=== PATIENT | male | born 1955 | race Two or more races ===

== ENCOUNTER 2024-12-26 14:31 | Inpatient (IN) | payer OTHER, MEDICARE ==
[~2024-12-26] VITALS: Ht 180.3 cm; Wt 118.0 kg
[2024-12-26 14:38] VITALS: PULSE 198; RESP 28; O2SAT 94
[2024-12-26] MEDS: MIDAZOLAM HCL 5 MG/ML-1ML VIAL IV ONE ×2 (14:44→15:51)
[2024-12-26 15:17] LABS: Hematocrit 43.6 % (41.0-53.0); Hemoglobin 14.9 g/dL (13.5-17.5); Mean Corpuscular Hemoglobin 30.9 pg (28.0-32.0); Mean Corpuscular Volume 90.5 fL (80.0-100.0); Nucleated Red Blood Cells % 0.1 %
[2024-12-26] MEDS: MIDAZOLAM HCL 5 MG/ML-1ML VIAL ONE ×2 (15:24→15:53)
[2024-12-26 15:30] LABS: Alanine Aminotransferase 37 U/L (7-40); Albumin 4.1 g/dL (3.2-4.8); Alkaline Phosphatase 95 U/L (46-116); Anion Gap 18 (5-15); BUN/Creatinine Ratio 12.4 (10.0-20.0); Blood Urea Nitrogen 18 mg/dL (9-23); Calcium 9.6 mg/dL (8.7-10.4); Chloride 102 mmol/L (98-107); Potassium 3.7 mmol/L (3.5-5.1); Sodium 138 mmol/L (136-145); Total Protein 7.2 g/dL (5.7-8.2)
[2024-12-26 15:31] LABS: Bilirubin, Total 1.7 mg/dL (0.2-1.0); Carbon Dioxide 18 mmol/L (20-31); Glucose 207 mg/dL (74-106)
--- NOTE | 2024-12-26 15:44 | DVH ---
CHEST RADIOGRAPH Indication: afib with rvr Technique: Single frontal view of the chest was obtained COMPARISON: None FINDINGS: Lines and Tubes: None Lungs: Congestion Pleura: No effusion.No pneumothorax. Cardiomediastinal contours: Cardiomegaly Bones: Unremarkable IMPRESSION: Cardiomegaly with mild pulmonary vascular congestion.
[2024-12-26] MEDS: HALOPERIDOL LACTATE 5 MG/ML INJ VIAL IM ONE (15:45)
[2024-12-26] MEDS: HALOPERIDOL LACTATE 5 MG/ML INJ VIAL ONE (15:53)
[2024-12-26 15:56] LABS: Lactic Acid w/Reflex 4.7 mmol/L (0.4-2.0)
[2024-12-26] MEDS: AMIODARONE BOLUS KIT 100 ML IV ONE (16:04)
--- NOTE | 2024-12-26 17:14 | ECG ---
[facility] Test Date: 2024-12-26 Test Time: 14:33:30 Pat Name: ANGELINE LORENZO Department: ED Room: [address] [place] [address] Gender: M Personal Service Representative: gp : 1955 Requested By: DANILO LEDEZMA Order Number: [id number] Reading MD: Nico Lorenzo Measurements Intervals [place] Rate: 180 P: 0 VA: 0 QRS: 174 QRSD: 79 T: 69 QT: 254 QTc: 440 Interpretive Statements Atrial fibrillation with rapid V-rate Right axis deviation Probable anteroseptal infarct, old Baseline wander in lead(s) I,II,aVR,V5 Electronically Signed On 12-27-2024 17:58:37 PST by Nico Lorenzo Please click the below link to view image of tracing.
[2024-12-26 19:00] VITALS: PULSE 95; RESP 24; O2SAT 100
[2024-12-27 07:28] VITALS: PULSE 127; RESP 16; O2SAT 99
--- NOTE | 2024-12-27 11:48 | ED.PDOC ---
History of Present Illness HPI Comments This is a 69-year-old male who comes in with chief complaint of possible seizure activity. It is unknown how long the seizure lasted. The patient was found outside of a hotel yesterday. The patient denies any nausea, vomiting or diarrhea. The patient was altered at that time and was somewhat combative. The patient today denies any drug use and states that he took some pain medication for his back and knees. The patient has been here in the emergency department's and is now more awake and answering questions. The patient denies any history of seizures. Chief Complaint: Seizure Time Seen by MD: 11:48 Reviewed Notes: Nurses Notes, Printed Circuit Layout Taper Notes, Medications, Allergies (No allergies to medications) Allergies: Coded Allergies: NO KNOWN ALLERGIES (Unverified , 12/26/24) Information Source: Patient, Emergency Med Personnel Mode of Arrival: EMS Severity: Moderate Timing: Hours Duration: Since onset Prehospital treatment: Family And Divorce Legal Assistant, IVF Associated signs and symptoms No chest pain or shortness for breath Past Medical History PAST MEDICAL HISTORY: DM, High Lipids Surgical History: Appendectomy, Cholecystectomy Family History Family History: No family hx of Cancer, No family hx of DM, No family hx of Heart ele Social History Smoker: Cigarettes Alcohol: Occasionally Drugs: Denies Drug Use Lives In: Home Constitutional: denies: chills, diaphoresis, fatigue, fever, malaise, sweats, weakness, others EENTM: denies: blurred vision, double vision, ear bleeding, ear discharge, ear drainage, ear pain, ear ringing, eye pain, eye redness, hearing loss, mouth pain, mouth swelling, nasal discharge, nose bleeding, nose congestion, nose pain, photophobia, tearing, throat pain, throat swelling, voice changes, others Respiratory: denies: cough, hemoptysis, orthopnea, SOB at rest, shortness of breath, SOB with excertion, stridor, wheezing, others Cardiovascular: denies: chest pain, dizzy spells, diaphoresis, Dyspnea on exertion, edema, irregular heart beat, left arm pain, lightheadedness, palpitations, PND, syncope, others Gastrointestinal: denies: abdomen distended, abdominal pain, blood streaked bowels, constipated, diarrhea, dysphagia, difficulty swallowing, hematemesis, melena, nausea, poor appetite, poor fluid intake, rectal bleeding, rectal pain, vomiting, others Genitourinary: denies: burning, dysuria, flank pain, frequency, hematuria, incontinence, penile discharge, penile sore, pain, testicle pain, testicle swelling, urgency, others Neurological: reports: seizure; denies: dizziness, fainting, headache, left sided numbness, left sided weakness, numbness, paresthesia, pre-existing deficit, right sided numbness, right sided weakness, speech problems, tingling, tremors, weakness, others Integumetry: denies: bruises, change in color, change in hair/nails, dryness, laceration, lesions, lumps, rash, wounds, others Allergic/Immunocompromised: denies: Difficulty Healing, Frequent Infections, Hives, Itching, others Hematologic/Lymphatic: denies: anemia, blood clots, easy bleeding, easy bruising, swollen glands, others Endocrine: denies: excessive hunger, excessive sweating, excessive thirst, excessive urination, flushing, intolerance to cold, intolerance to heat, unexplained weight gain, unexplained weight loss, others Psychiatric: denies: anxiety, bipolar disorder, depression, hopeless, panic disorder, schizophrenia, sleepless, suicidal, others Physical Exam General Appearance: Mild Distress HEENT: Normal ENT Inspection, Pharynx Normal, TMs Normal Neck: Full Range of Motion, Non-Tender, Normal, Normal Inspection Respiratory: Chest Non-Tender, Lungs Clear, No Accessory Muscle Use, No Respiratory Distress, Normal Breath Sounds Cardiovascular: No Edema, No JVD, No Murmur, No Gallop, Normal Peripheral Pulses, Regular Rate/Rhythm Breast Exam: Deferred Gastrointestinal: No Organomegaly, Non Tender, No Pulsatile Mass, Normal Bowel Sounds, Soft Genitalia: Deferred Pelvic: Deferred Rectal: Deferred Extremities: No calf tenderness, Normal capillary refill, Normal inspection, Normal range of motion, Non-tender, No pedal edema Musculoskeletal : Apperance: Normal Neurologic: Alert, interpretive program coordinator II-XII nml as Tested, No Motor Deficits, Normal Affect, Normal Mood, No Sensory Deficits Cerebellar Function: Normal Reflexes: Normal Skin: Dry, Normal Color, Warm Lymphatic: No Adenopathy Was a procedure done? Was a procedure done?: No Differential Dx Considerations may include: Seizure activity, generalized weakness, electrolyte imbalance, dehydration X-Ray, Labs, Meds, VS Vital Signs Date Time Temp Pulse Resp B/P (MAP) Pulse Ox O2 Delivery O2 Flow Rate FiO2 12/27/24 10:00 111 20 118/59 (78) 99 12/27/24 09:03 117 19 111/72 (85) 100 12/27/24 08:00 124 12/27/24 07:38 97.5 108 16 119/62 (81) 97 97.5 12/27/24 07:28 127 16 99 Room Air* 0 21 12/27/24 06:30 125 24 124/73 (90) 100 12/27/24 06:00 117 23 122/62 (82) 100 12/27/24 05:30 117 24 134/83 (100) 100 12/27/24 05:00 121 21 124/60 (81) 100 12/27/24 04:30 116 19 115/64 (81) 100 12/27/24 04:00 124 12/27/24 04:00 116 22 117/68 (84) 100 12/27/24 03:30 109 20 108/67 (81) 100 12/27/24 03:00 64 20 110/68 (82) 100 12/27/24 02:30 115 20 110/73 (85) 100 12/27/24 02:00 114 39 94/56 (69) 100 12/27/24 01:30 101 26 93/63 (73) 100 12/27/24 01:00 88 26 94/50 (65) 100 12/27/24 00:30 67 20 97/59 (72) 100 12/27/24 00:00 112 12/27/24 00:00 115 20 101/58 (72) 100 12/26/24 23:30 85 22 97/61 (73) 100 12/26/24 23:00 92 40 113/52 (72) 100 12/26/24 22:30 104 21 91/56 (68) 100 12/26/24 22:00 104 21 91/55 (67) 100 12/26/24 21:30 121 38 91/57 (68) 100 12/26/24 21:00 77 33 91/64 (73) 100 12/26/24 20:30 80 24 95/59 (71) 100 12/26/24 20:00 125 12/26/24 20:00 71 25 100/50 (67) 100 12/26/24 19:50 122 27 95/65 (75) 100 12/26/24 19:15 97.9 95 24 86/62 (70) 100 97.9 12/26/24 19:00 95 24 100 Room Air* 0 21 12/26/24 17:03 136 24 91/50 (64) 99 12/26/24 16:14 140 12/26/24 15:16 98.4 158 28 102/57 (72) 98.4 12/26/24 14:38 198 28 94 Room Air* 0 21 12/26/24 14:33 180 12/26/24 14:31 193 22 136/104 94 Lab Test 12/26/24 18:21 12/26/24 16:47 12/26/24 16:00 12/26/24 14:56 Range/Units Troponin I High Sensitivity 180 *H 233 *H 193 *H </=54 ng/L Lactic Acid Level 1.8 4.7 *H 0.4-2.0 mmol/L White Blood Count 14.5 H 4.4-10.8 10^3/uL Red Blood Count 4.82 4.5-5.90 10^6/uL Hemoglobin 14.9 13.5-17.5 g/dL Hematocrit 43.6 41.0-53.0 % Mean Corpuscular Volume 90.5 80.0-100.0 fL Mean Corpuscular Hemoglobin 30.9 28.0-32.0 pg Mean Corpuscular Hemoglobin Concent 34.2 32.0-36.0 g/dL Red Cell Distribution Width 13.9 11.8-14.3 % Platelet Count 221 140-450 10^3/uL Mean Platelet Volume 8.9 6.9-10.8 fL Neutrophils (%) (Auto) 86.3 H 37.0-80.0 % Lymphocytes (%) (Auto) 5.5 L 10.0-50.0 % Monocytes (%) (Auto) 6.7 0.0-12.0 % Eosinophils (%) (Auto) 0.1 0.0-7.0 % Basophils (%) (Auto) 1.4 0.0-2.0 % Neutrophils # (Auto) 12.5 H 1.6-8.6 10 ^3/uL Lymphocytes # (Auto) 0.8 0.4-5.4 10 ^3/uL Monocytes # (Auto) 1.0 0-1.3 10 ^3/uL Eosinophils # (Auto) 0 0-0.8 10 ^3/uL Basophils # (Auto) 0.2 0-0.2 10 ^3/uL Nucleated Red Blood Cells 0.1 % Sodium Level 138 136-145 mmol/L Potassium Level 3.7 3.5-5.1 mmol/L Chloride Level 102 98-107 mmol/L Carbon Dioxide Level 18 L 20-31 mmol/L Anion Gap 18 H 5-15 Blood Urea Nitrogen 18 9-23 mg/dL Creatinine 1.45 H 0.700-1.30 mg/dL Glomerular Filtration Rate Calc 52 >90 mL/min BUN/Creatinine Ratio 12.4 10.0-20.0 Serum Glucose 207 H 74-106 mg/dL Calcium Level 9.6 8.7-10.4 mg/dL Total Bilirubin 1.7 H 0.2-1.0 mg/dL Aspartate Amino Transferase (AST) 60 H 13-40 U/L Alanine Aminotransferase (ALT) 37 7-40 U/L Alkaline Phosphatase 95 46-116 U/L B-Type Natriuretic Peptide 933.70 0-100 pg/mL Total Protein 7.2 5.7-8.2 g/dL Albumin 4.1 3.2-4.8 g/dL Current Medications Medications (Trade) Dose Ordered Sig/Nadine Route Start Time Stop Time Status Last Admin Midazolam HCl (Versed Injection) 5 mg ONCE ONCE IV 12/26/24 15:15 12/26/24 15:16 DC 12/26/24 14:44 Amiodarone HCl 100 ml @ 600 mls/hr ONCE ONCE IV 12/26/24 15:30 12/26/24 15:39 DC 12/26/24 16:04 Amiodarone HCl 250 ml @ 33.33 mls/ hr Q7H31M ONCE IV 12/26/24 15:45 12/26/24 23:15 DC 12/26/24 16:13 Amiodarone HCl 250 ml @ 16.66 mls/ hr Q15H1M IV 12/26/24 21:45 12/27/24 02:00 Midazolam HCl (Versed Injection) 10 mg ONCE ONCE IV 12/26/24 15:45 11/17/25 15:46 DC 12/26/24 15:51 Haloperidol Lactate (Haldol) 10 mg ONCE ONCE IM 12/26/24 15:45 12/26/24 15:46 DC 12/26/24 15:45 IV Hep-Lock was established. The patient was given Versed 5 mg IV push initially Patient had atrial fibrillation with rapid response initially upon arrival and the patient was started on an amiodarone drip after given a bolus. The patient required an additional dose of Versed as well as Haldol. The patient is now more cooperative. The BNP is 933 The patient's lactic acid level was 4.7 but is now gone down to 1.8. The troponin level has remained elevated above 200. At this time, the patient is being admitted to the hospitalist. Images Reviewed?: Images reviewed and evaluated by me Time of 1ST Reevaluation: 11:44 Reevaluation 1ST: Unchanged Patient Education/Counseling: Diagnosis, Treatment, Prognosis Family Education/Counseling: No Family Present SEPSIS Sepsis Screen Date sepsis recognized/suspect: Dec 26, 2024 Time Sepsis recognized/suspect: 1899 Recent Procedure: No On Antibiotic Therapy: No Respiratory Rate >20: Yes Heart Rate >90: Yes Temp<36 C (96.8 F) or >38.3 C: No SBP <90 or MAP <65 mmHG: Yes New Acute Mental Status Change: No Is the patient on CPAP, BIPAP,: No Physician Orders Chest Portable (12/26/24 14:41) Blood Culture (12/26/24 14:41) Urinalysis (12/26/24 14:41) Drug Screen (12/26/24 14:41) Electrocardigram (12/26/24 15:41) Electrocardigram (12/26/24 17:41) Amiodarone 450mg/250ml Ae (Cordarone) (12/26/24 21:45) Quintero Catheters (12/26/24 ) Urine Bacterial Culture (12/26/24 16:46) Vital Signs Date Time Temp Pulse Resp B/P (MAP) Pulse Ox O2 Delivery O2 Flow Rate FiO2 12/27/24 10:00 111 20 118/59 (78) 99 12/27/24 09:03 117 19 111/72 (85) 100 12/27/24 08:00 124 12/27/24 07:38 97.5 108 16 119/62 (81) 97 97.5 12/27/24 07:28 127 16 99 Room Air* 0 21 12/27/24 06:30 125 24 124/73 (90) 100 12/27/24 06:00 117 23 122/62 (82) 100 12/27/24 05:30 117 24 134/83 (100) 100 12/27/24 05:00 121 21 124/60 (81) 100 12/27/24 04:30 116 19 115/64 (81) 100 12/27/24 04:00 124 12/27/24 04:00 116 22 117/68 (84) 100 12/27/24 03:30 109 20 108/67 (81) 100 12/27/24 03:00 64 20 110/68 (82) 100 12/27/24 02:30 115 20 110/73 (85) 100 12/27/24 02:00 114 39 94/56 (69) 100 12/27/24 01:30 101 26 93/63 (73) 100 12/27/24 01:00 88 26 94/50 (65) 100 12/27/24 00:30 67 20 97/59 (72) 100 12/27/24 00:00 112 12/27/24 00:00 115 20 101/58 (72) 100 12/26/24 23:30 85 22 97/61 (73) 100 12/26/24 23:00 92 40 113/52 (72) 100 12/26/24 22:30 104 21 91/56 (68) 100 12/26/24 22:00 104 21 91/55 (67) 100 12/26/24 21:30 121 38 91/57 (68) 100 12/26/24 21:00 77 33 91/64 (73) 100 12/26/24 20:30 80 24 95/59 (71) 100 12/26/24 20:00 125 12/26/24 20:00 71 25 100/50 (67) 100 12/26/24 19:50 122 27 95/65 (75) 100 12/26/24 19:15 97.9 95 24 86/62 (70) 100 97.9 12/26/24 19:00 95 24 100 Room Air* 0 21 12/26/24 17:03 136 24 91/50 (64) 99 12/26/24 16:14 140 12/26/24 15:16 98.4 158 28 102/57 (72) 98.4 12/26/24 14:38 198 28 94 Room Air* 0 21 12/26/24 14:33 180 12/26/24 14:31 193 22 136/104 94 Laboratory Tests Test 12/26/24 14:56 12/26/24 16:47 Lactic Acid Level 4.7 mmol/L (0.4-2.0) *H 1.8 mmol/L (0.4-2.0) White Blood Count 14.5 10^3/uL (4.4-10.8) H Departure 1 Departure Time of Disposition: 11:46 Impression: Primary Impression: New onset seizure Additional Impressions: Atrial fibrillation with rapid ventricular response Altered level of consciousness Disposition: ADMITTED INPATIENT Admit to: [facility] Condition: Fair Critical Care Note Critical Care Time?: Yes (45 min-critical care time only) Stability Stability form required: Yes Unstable for transfer: Telemetry monitoring (Telemetry monitoring required), ED Physician Assesment (Clinical assesment) Heart Score Heart Score: Heart Score Response (Comments) Value History N/A 0 EKG N/A 0 Age N/A 0 Risk Factors N/A 0 Troponin N/A 0 Total 0 TEODORO MORALES MD Dec 27, 2024 11:48
--- NOTE | 2024-12-27 11:56 | DVHHPRES ---
History of Present Illness Resident Creating Document: NICKI JERNIGAN RESIDENT History of Present Illness Silver Lorenzo is a 69-year-old male patient who presents to the ED due to altered mental status which started on 12/26/2024 at 9:00 a.m.. Per patient he was confused, he does not remember the episode correctly but he believes he lost consciousness and he does not recall events after loss of consciousness. His roommate called 911 and brought in to the emergency department. Patient does report before altered mental status he consumed cannabinoids edible and he obtained from non legitimate providers, presented stabbing retrosternal chest pain, fluttering sensation and dyspnea red after consumption, and thereafter presented altered mental status. When evaluated in emergency department an EKG was obtained which showed atrial fibrillation with RVR. Denies any other associated symptoms Past medical history: Hypertension, dyslipidemia, diabetes, PTSD, fatty liver. Surgical history: Cholecystectomy Family history: Noncontributory Social history: Lives in [place] with roommate (next of kin is , he does not recall her phone number). Patient normally smokes two cigarettes whenever he drinks, he occasionally drinks. He consumes edible cannabinoids from [employer]. Denies other drug abuse (UDS was positive for methamphetamine) Allergies: Denies Home medication he does not recall all his home medication but recalls takes quetiapine. Patient seen and examined at bedside. Currently has no new complaints, currently on IV amiodarone drip due to atrial fibrillation. We will admit for further evaluation. Past Medical History Per HPI Past Surgical History Per HPI Family History Per HPI Past Social History Per HPI Review of Systems Review of Systems Per HPI Allergies: Coded Allergies: NO KNOWN ALLERGIES (Unverified , 12/26/24) Medications Current Medications Medications Dose Ordered Sig/Nadine Route Start Time Stop Time Status Last Admin Dose Admin Amiodarone HCl 250 ml @ 16.66 mls/ hr Q15H1M IV 12/26/24 21:45 12/27/24 02:00 16.66 MLS/HR Exam Vital Signs Vital Signs Date Time Temp Pulse Resp B/P (MAP) Pulse Ox O2 Delivery O2 Flow Rate FiO2 12/27/24 10:00 111 20 118/59 (78) 99 12/27/24 07:38 97.5 97.5 12/27/24 07:28 Room Air* 0 21 Exam Patient lying in bed, in no acute distress General: Lucid, obese afebrile, mucosae are moist Cardiovascular: Variable S1 and S2, irregular irregular rhythm. No murmurs, gallops or rubs Respiratory: Normal ventilation mechanics. Clear lung sounds on auscultation Abdomen: Soft, nontender, no organomegaly, normal bowel sounds MSK/skin: Mobilizes 4 limbs. Skin is dry and warm Neurological: Oriented in 3 spheres. No motor no sensitive deficits. Pupils are isocoric and reactive Labs/Xrays Labs Test 12/26/24 18:21 12/26/24 16:47 12/26/24 14:56 Range/Units Troponin I High Sensitivity 180 *H </=54 ng/L Lactic Acid Level 1.8 0.4-2.0 mmol/L White Blood Count 14.5 H 4.4-10.8 10^3/uL Red Blood Count 4.82 4.5-5.90 10^6/uL Hemoglobin 14.9 13.5-17.5 g/dL Hematocrit 43.6 41.0-53.0 % Mean Corpuscular Volume 90.5 80.0-100.0 fL Mean Corpuscular Hemoglobin 30.9 28.0-32.0 pg Mean Corpuscular Hemoglobin Concent 34.2 32.0-36.0 g/dL Red Cell Distribution Width 13.9 11.8-14.3 % Platelet Count 221 140-450 10^3/uL Mean Platelet Volume 8.9 6.9-10.8 fL Neutrophils (%) (Auto) 86.3 H 37.0-80.0 % Lymphocytes (%) (Auto) 5.5 L 10.0-50.0 % Monocytes (%) (Auto) 6.7 0.0-12.0 % Eosinophils (%) (Auto) 0.1 0.0-7.0 % Basophils (%) (Auto) 1.4 0.0-2.0 % Neutrophils # (Auto) 12.5 H 1.6-8.6 10 ^3/uL Lymphocytes # (Auto) 0.8 0.4-5.4 10 ^3/uL Monocytes # (Auto) 1.0 0-1.3 10 ^3/uL Eosinophils # (Auto) 0 0-0.8 10 ^3/uL Basophils # (Auto) 0.2 0-0.2 10 ^3/uL Nucleated Red Blood Cells 0.1 % Sodium Level 138 136-145 mmol/L Potassium Level 3.7 3.5-5.1 mmol/L Chloride Level 102 98-107 mmol/L Carbon Dioxide Level 18 L 20-31 mmol/L Anion Gap 18 H 5-15 Blood Urea Nitrogen 18 9-23 mg/dL Creatinine 1.45 H 0.700-1.30 mg/dL Glomerular Filtration Rate Calc 52 >90 mL/min BUN/Creatinine Ratio 12.4 10.0-20.0 Serum Glucose 207 H 74-106 mg/dL Calcium Level 9.6 8.7-10.4 mg/dL Total Bilirubin 1.7 H 0.2-1.0 mg/dL Aspartate Amino Transferase (AST) 60 H 13-40 U/L Alanine Aminotransferase (ALT) 37 7-40 U/L Alkaline Phosphatase 95 46-116 U/L B-Type Natriuretic Peptide 933.70 0-100 pg/mL Total Protein 7.2 5.7-8.2 g/dL Albumin 4.1 3.2-4.8 g/dL SEPSIS Sepsis Screen Date sepsis recognized/suspect: Dec 26, 2024 Time Sepsis recognized/suspect: 1899 Recent Procedure: No On Antibiotic Therapy: No Respiratory Rate >20: Yes Heart Rate >90: Yes Temp<36 C (96.8 F) or >38.3 C: No SBP <90 or MAP <65 mmHG: Yes New Acute Mental Status Change: No Is the patient on CPAP, BIPAP,: No Physician Orders Admit (12/27/24 11:50) Code Status (12/27/24 11:50) Acetaminophen Tablet (Tylenol Tablet) (12/27/24 12:00) Ondansetron Hcl (Zofran) (12/27/24 12:00) Complete Blood Count (12/28/24 04:00) Comprehensive Metabolic Panel (12/28/24 04:00) Npo (Nothing By Mouth) Diet (12/27/24 Lunch) Echo 2d Mode Cardiac Dop (12/27/24 11:50) Carotid Duplx W Color Dop (12/27/24 11:50) Morphine Sulfate Injection (12/27/24 12:00) Oxygen By Nasal Cannula (12/27/24 11:50) Stat Ekg For Chest Pain (12/27/24 11:50) Notify Md Of Changes From Base (12/27/24 11:50) Candy Depositing Machine Operator For 24 Hours (12/27/24 11:50) Emergency Dysrhythmia Protocol (12/27/24 11:50) Rhythm Strips Once Every Shift (12/27/24 11:50) Enoxaparin Sodium (Lovenox) (12/27/24 22:00) Enoxaparin Sodium (Lovenox) (12/27/24 12:00) Head Without Contrast (12/27/24 11:50) Vitamin D, 25-Hydroxy (12/27/24 11:50) Vitamin B12 (12/27/24 11:50) Urinalysis (12/27/24 11:50) Thyroid Stimulating Hormone (12/27/24 11:50) PTPTT (12/27/24 11:50) Phosphorus (12/27/24 11:50) Magnesium (12/27/24 11:50) Lipid Panel (12/27/24 11:50) Hemoglobin A1c (12/27/24 11:50) Drug Screen (12/27/24 11:50) Complete Blood Count (12/27/24 11:50) Comprehensive Metabolic Panel (12/27/24 11:50) Ammonia (12/27/24 11:50) Vital Signs Date Time Temp Pulse Resp B/P (MAP) Pulse Ox O2 Delivery O2 Flow Rate FiO2 12/27/24 10:00 111 20 118/59 (78) 99 12/27/24 09:03 117 19 111/72 (85) 100 12/27/24 08:00 124 12/27/24 07:38 97.5 108 16 119/62 (81) 97 97.5 12/27/24 07:28 127 16 99 Room Air* 0 21 12/27/24 06:30 125 24 124/73 (90) 100 12/27/24 06:00 117 23 122/62 (82) 100 12/27/24 05:30 117 24 134/83 (100) 100 12/27/24 05:00 121 21 124/60 (81) 100 12/27/24 04:30 116 19 115/64 (81) 100 12/27/24 04:00 124 12/27/24 04:00 116 22 117/68 (84) 100 Assessment/Plan Assessment/Plan ASSESSMENT Questionable breakthrough seizure Metabolic versus toxic encephalopathy probably secondary to hyperammonemia/methamphetamine Newly diagnosed atrial fibrillation with RVR (chads Vasc 6) secondary hypercoagulability state [place] heart failure (unknown LVEF) Sepsis probably secondary to aspiration pneumonia Aspiration pneumonia Gram-positive/Gram-negative NSTEMI probable type 2 due to above History of stroke (unknown by patient, seen in head CT) Diabetes-uncontrolled (hemoglobin A1c 7.7%) Transaminitis Morbid obesity Polysubstance abuse Fatty liver PTSD PLAN Obtained head CT which showed no acute intracranial pathology but old occipital stroke. Ordered troponin which were mildly elevated (193-250-180). EKG showed atrial fibrillation RVR and no ST-elevation. Chest pain is stabbing and of short duration associated with fluttering sensation. Ordered echocardiogram to evaluate abnormalities and motility, evaluate need of cardiology evaluation if echocardiogram is abnormal. Most likely NSTEMI type 2 due to secondary methamphetamine/sepsis/heart failure/AFib RVR. Indicated aspirin atorvastatin due to old stroke her secondary prevention. Ordered head MRI UDS positive for benzodiazepines, methamphetamine and cannabinoids. Could be probable cause of encephalopathy Patient presents hyperammonemia, ordered alcohol in blood and lactulose Completed BNP which was positive, chest x-ray showed cardiomegaly and vascular congestion, lower limb infrapatellar pitting edema. Indicated low dose of furosemide (20 mg IV daily) Currently under empiric IV antibiotic (Zosyn) Ordered pancultures On Amiodarone drip and therapeutic enoxaparin On insulin sliding scale Ordered abdominal Us for transaminitis Counseled strongly on cessation of drug abuse Goals of care discussed with patient for over 18 minutes: Full code status Discussed plan with Dr Vega, patient and nurses: Currently on Telemetry status. Patient On amiodarone drip and therapeutic enoxaparin. Ordered echocardiogram. Head CT shows old stroke (patient not aware), ordered brain MRI. currently on ASA and atorvastatin for secondary prevention. Counseled on cessation of polysubstance abuse. Ordered abdomen ultrasound to evaluate transaminitis. Patient has poor prognosis. Plan discussed with: Patient, Other (Nurses) My Orders Orders - NICKI JERNIGAN RESIDENT Procedure Category Date Status Time Admit ADMIT 12/27/24 Verified 11:50 Code Status CODE 12/27/24 Verified 11:50 Acetaminophen Tablet PHA 12/27/24 Verified (Tylenol Tablet) 12:00 Ondansetron Hcl PHA 12/27/24 Verified (Zofran) 12:00 Complete Blood Count LAB 12/28/24 Verified 04:00 Comprehensive LAB 12/28/24 Verified Metabolic Panel 04:00 Npo (Nothing By DIET 12/27/24 Verified Mouth) Diet Lunch Echo 2d Mode Cardiac US 12/27/24 Verified DOP 11:50 Carotid Duplx W Color US 12/27/24 Verified DOP 11:50 Morphine Sulfate PHA 12/27/24 Verified Injection 12:00 Oxygen By Nasal RT 12/27/24 Verified Cannula 11:50 Stat Ekg For Chest [facility] 12/27/24 Verified Pain 11:50 Notify Md Of Changes [facility] 12/27/24 Verified From Base 11:50 Candy Depositing Machine Operator For [facility] 12/27/24 Verified 24 Hours 11:50 Emergency Dysrhythmia [facility] 12/27/24 Verified Protocol 11:50 Rhythm Strips Once [facility] 12/27/24 Verified Every Shift 11:50 Enoxaparin Sodium PHA 12/27/24 Verified (Lovenox) 22:00 Enoxaparin Sodium PHA 12/27/24 Verified (Lovenox) 12:[address] 12/27/24 Verified 11:50 Vitamin D, 25-Hydroxy LAB 12/27/24 Verified 11:50 Vitamin B12 LAB 12/27/24 Verified 11:50 Urinalysis LAB 12/27/24 Verified 11:50 Thyroid Stimulating LAB 12/27/24 Verified Hormone 11:50 PTPTT LAB 12/27/24 Verified 11:50 Phosphorus LAB 12/27/24 Verified 11:50 Magnesium LAB 12/27/24 Verified 11:50 Lipid Panel LAB 12/27/24 Verified 11:50 Hemoglobin A1c LAB 12/27/24 Verified 11:50 Drug Screen LAB 12/27/24 Verified 11:50 Complete Blood Count LAB 12/27/24 Verified 11:50 Comprehensive LAB 12/27/24 Verified Metabolic Panel 11:50 Ammonia LAB 12/27/24 Verified 11:50 Date of Service: Dec 27, 2024 Billing Provider: HARIS VEGA DO Common Visit Codes: [id number] INP/OBS CARE (HIGH) Secondary Visit Codes: [id number] CARE PLAN 30 MINUTES NICKI JERNIGAN RESIDENT Dec 27, 2024 11:56 HARIS VEGA DO Dec 31, 2024 20:32
[2024-12-27] MEDS ORDERED: ONDANSETRON HCL 4 MG/2 ML VIAL IV PRN (12:00)
[2024-12-27] MEDS ORDERED: ACETAMINOPHEN 325 MG TAB PO PRN (12:00)
[2024-12-27 12:29] LABS: Hematocrit 39.2 % (41.0-53.0); Hemoglobin 13.5 g/dL (13.5-17.5); Mean Corpuscular Hemoglobin 31.3 pg (28.0-32.0); Mean Corpuscular Volume 90.9 fL (80.0-100.0); Nucleated Red Blood Cells % 0.1 %
--- NOTE | 2024-12-27 12:29 | DVH ---
CT HEAD WITHOUT CONTRAST INDICATION: Breakthrough seizure EXAM DATE: 12/27/2024 12:04 PM COMPARISON: None RADIATION DOSE: CTDIvol: 67 mGy, DLP: 1461 mGy*cm PROCEDURE: CT scans of the head were obtained from the vertex to the skull base. Sagittal and coronal reconstructions were provided. All CT scans at this medical facility are performed using dose modulation techniques as appropriate to a performed exam including the following: Automated exposure control was utilized; adjustment of the MA and/or KV according to patient size; and use of iterative reconstruction technique. FINDINGS: Hypodensity in the right occipital lobe likely from prior infarct. There is sulcal and ventricular prominence. The brain otherwise shows normal morphology and diallo-white matter differentiation, without intracranial hemorrhage, extra-axial fluid collection, mass effect or acute large vessel i nfarct. The ventricles are normal in size. The basal cisterns are patent. The skull and visible facial bones are intact. The paranasal sinuses, mastoid air cells and middle ear cavities are well-aerated. The soft tissues of the scalp are unremarkable. IMPRESSION: Hypodensity in the right occipital lobe likely from prior infarct. No acute intracranial abnormality.
[2024-12-27] MEDS: ENOXAPARIN SOD 120 MG/0.8 ML SYRINGE SC ONE (12:35)
[2024-12-27 12:43] LABS: Alanine Aminotransferase 26 U/L (7-40); Albumin 3.8 g/dL (3.2-4.8); Alkaline Phosphatase 81 U/L (46-116); Anion Gap 13 (5-15); BUN/Creatinine Ratio 16.0 (10.0-20.0); Blood Urea Nitrogen 16 mg/dL (9-23); Calcium 8.8 mg/dL (8.7-10.4); Carbon Dioxide 22 mmol/L (20-31); Chloride 104 mmol/L (98-107); Magnesium 1.9 mg/dL (1.6-2.6); Potassium 4.0 mmol/L (3.5-5.1); Sodium 139 mmol/L (136-145); Total Protein 6.9 g/dL (5.7-8.2); Triglycerides 113 mg/dL (< 150)
[2024-12-27 12:44] LABS: Cholesterol 148 mg/dL (< 200)
[2024-12-27 12:45] LABS: INR 1.11 (0.9-1.15); Partial Thromboplastin Time 24.8 SEC (24.5-34.5); Prothrombin Time 11.6 sec (9.3-11.8)
[2024-12-27 12:46] LABS: Bilirubin, Total 1.6 mg/dL (0.2-1.0); Glucose 178 mg/dL (74-106); HDL Cholesterol 33 mg/dL (40-59)
[2024-12-27 13:06] LABS: Urine Protein, UAD TRACE (Negative)
[2024-12-27 13:07] LABS: Cannabinoid Screen, Urine Pos (NEGATIVE); Opiate Scree,Urine Neg (NEGATIVE)
[2024-12-27 13:08] LABS: Amphetamine Screen, Urine Pos (NEGATIVE); Barbiturate Scree,Urine Neg (NEGATIVE); Benzodiazephine Screen, Urine Pos (NEGATIVE); Cocaine Screen, Urine Neg (NEGATIVE); Phencyclidine Screen, Urine Neg (NEGATIVE)
--- NOTE | 2024-12-27 15:02 | DVH ---
Indication: Seizure/syncope Technique: Real-time ultrasound images of the neck vessels with diallo-scale, color and wave Doppler were obtained. Comparison: None Findings: There is mild atherosclerotic plaque bilaterally. The following peak systolic velocities were recorded in cm/sec: Right internal carotid: 87 Right common carotid: 56 Right external carotid: 69 Right internal/common carotid ratio: 1.6 Left internal carotid: 77 Left common carotid: 53 Left external carotid: 100 Left internal/common carotid ratio: 1.5 Right vertebral artery: Patent with normal antegrade direction of flow. Left vertebral artery: Patent with normal antegrade direction of flow. Impression: No hemodynamically significant stenosis by velocity criteria.
[2024-12-27 18:40] VITALS: BP 109/57; PULSE 53; RESP 18; TEMP 98.1; O2SAT 95
[2024-12-27 20:00] VITALS: BP 109/57; PULSE 110; PULSE 127; PULSE 53; RESP 18; TEMP 98.1; O2SAT 95; O2SAT 96
[2024-12-27] MEDS: MORPHINE SULFATE INJ 2 MG/ml SYRG IV PRN (20:12)
[2024-12-27 21:00] VITALS: BP 123/77; PULSE 112; RESP 17; TEMP 98.5; O2SAT 97
[2024-12-27] MEDS ORDERED: DEXTROSE (50%) 50ML SYRG IV PRN (21:30)
[2024-12-27] MEDS ORDERED: ALPRAZolam 0.25 MG TAB PO PRN (21:30)
[2024-12-27] MEDS: InsuLIN REG 1unit/0.01ml Soln (100units/ml) SC SCH (22:00)
[2024-12-27] MEDS: FUROSEMIDE 20 MG/2 ML VIAL IV ONE (22:41)
[2024-12-27] MEDS: LACTULOSE 20Gm/30ML SOLN PO SCH (22:41)
[2024-12-27] MEDS: ATORVASTATIN 20 MG TAB PO SCH (22:42)
[2024-12-27] MEDS: PIPERACILLIN-TAZOB 3.375GM 100 ML IV SCH (22:42)
[2024-12-27] MEDS: ERGOCALCIFEROL 50,000 UNIT(1.25MG) CAP PO SCH (22:42)
[2024-12-27] MEDS: ENOXAPARIN SOD 120 MG/0.8 ML SYRINGE SC SCH (22:43)
[2024-12-27] MEDS: ACCU-CHEK COMFORT CURVE STRIP VI SCH (22:50)
[2024-12-28 05:00] VITALS: BP 139/83; PULSE 77; RESP 19; TEMP 97.9; O2SAT 97
[2024-12-28] MEDS ORDERED: FUROSEMIDE 20 MG/2 ML VIAL IV SCH (10:00)
[2024-12-28] MEDS ORDERED: PANTOPRAZOLE 40 MG/10 ML VIAL INJ IV SCH (10:00)
--- NOTE | 2024-12-28 11:23 | DVHSR ---
APPROVED REPORT EXAM: Two-dimensional and M-mode echocardiogram with Doppler and color Doppler. Blood Pressure: 118/59 mmHg INDICATION New onset Afib RISK FACTORS Obesity: Height: 5'11", Weight: 260 DIMENSIONS LVDd 4.8 (3.8-5.7cm) LA (2D) 4.5 (1.9-4.0cm) Aortic Root 3.4 (2.0-3.7cm) LVDs 3.7 (2.5-4.0cm) LA (MM) (1.9-4.0cm) Aortic Cusp Exc 1.5 (1.5-2.0cm) EF (%) 45.0 (55-70%) Rt. Atrium 4.5 (1.9-4.0cm) Asc. Aorta cm IVSd 1.5 (0.7-1.1cm) RV (D) (1.8-2.4cm) PWd 1.3 (0.7-1.1cm) Mitral Valve Mitral Mitral Stenosis E wave 1.02m/s MV Mean GR. mmHg E/A ratio 0.0 2D MVA cm2 Aortic Valve Aortic Valve Aortic Stenosis V1 0.77m/s AO Mean GR. 4mmHg V2 1.49m/s AO Peak GR. 9mmHg LVOT Diameter 2.0 (1.8-2.4cm) Doppler SIL 1.62cm2 Pulmonic Valve V2 0.76m/s Tricuspid Valve TR Velocity 2.45m/s RVSP 39mmHg Other Information Quality : Rhythm : Atrial Fibrillation Technically limited study due to body habitus and rhythm. Conclusion DILATED ALL CARDIAC CHAMBERS GLOBAL HYPOKINESIS OF ALL CARDIAC CHAMBERS LV EF IS IN RANGE OF ONLY 25% AND IS MODERATELY REDUCED NORMAL VALVES NO EFFUSION MILD PULMONARY HYPERTENSION
== END 2024-12-28 06:42 | disposition left against medical advice (07) | DRG 871 ==
LOC: EDBD 14:31 → ER 14:31 → OVERFLOW 12-27 11:50 → TELE-WESTW 12-27 11:55
PROVIDERS: ADMIT Student in an Organized Health Care Education/Training Program; ATTEND Emergency Medicine
DX: A41.9 Sepsis, unspecified organism (principal); G92.8 Other toxic encephalopathy; J69.0 Pneumonitis due to inhalation of food and vomit; J15.69 Pneumonia due to other Gram-negative bacteria; I21.A1 Myocardial infarction type 2; J15.9 Unspecified bacterial pneumonia; I11.0 Hypertensive heart disease with heart failure; I50.9 Heart failure, unspecified; E11.65 Type 2 diabetes mellitus with hyperglycemia; E66.01 Morbid (severe) obesity due to excess calories; F19.10 Other psychoactive substance abuse, uncomplicated; K76.0 Fatty (change of) liver, not elsewhere classified; I48.91 Unspecified atrial fibrillation; E11.9 Type 2 diabetes mellitus without complications; F17.210 Nicotine dependence, cigarettes, uncomplicated; E78.5 Hyperlipidemia, unspecified; Z90.49 Acquired absence of other specified parts of digestive tract; R74.01 Elevation of levels of liver transaminase levels; F43.10 Post-traumatic stress disorder, unspecified
CPT/HCPCS: 36415; 70450; 71045; 80053; 80061; 80307; 80320; 81001; 82140; 82306; 82607; 82962; 83036; 83605; 83735; 83880; 84100; 84443; 84484; 85025; 85610; 85730; 87040; 87086; 93005; 93306; 93886; 96365; 96372; 96375; 99291; G0378; J2250; J2543